=== PATIENT | male | born 1990 | race American Indian/Alaskan Native ===

== ENCOUNTER 2017-09-16 15:59 | Emergency (ER) | payer MEDICARE, MEDICAID ==
[2017-09-16 16:06] VITALS: BP 122/84; PULSE 79; RESP 20; TEMP 98.2; O2SAT 99
--- NOTE | 2017-09-16 16:32 | C.PDOC ---
History Of Present Illness 27 year old male with no significant PMHx presents to the ED with complaints of right ear ache for 1 week. Patient denies fever, chills, throat pain, headache, or other complaints at this time. Time Seen by Provider: 09/16/17 16:20 Chief Complaint (Nursing): ENT Problem History Per: Patient History/Exam Limitations: None Onset/Duration Of Symptoms: Days (1 week ) Current Symptoms Are (Timing): Still Present Symptoms Have Been: Continuous Anticoagulant/Antiplatlet Use?: No Recent Aspirin Use: No Past Medical History Reviewed: Historical Data, Nursing Documentation, Vital Signs Vital Signs: Last Vital Signs Temp 98.2 F 09/16/17 16:03 Pulse 79 09/16/17 16:03 Resp 20 09/16/17 16:03 BP 122/84 09/16/17 16:03 Pulse Ox 99 09/16/17 17:06 Family History: States: Unknown Family Hx - Social History Hx Tobacco Use: No Hx Alcohol Use: No Hx Substance Use: No - Immunization History Hx Tetanus Toxoid Vaccination: No Hx Influenza Vaccination: No Hx Pneumococcal Vaccination: No Review Of Systems Constitutional: Negative for: Fever, Chills ENT: Positive for: Ear Pain. Negative for: Nose Discharge, Throat Pain Respiratory: Negative for: Cough, Shortness of Breath Physical Exam - Physical Exam Appears: Non-toxic, No Acute Distress Skin: Warm, Dry Head: Atraumatic, Normacephalic, No Tenderness Eye(s): bilateral: Normal Inspection, PERRL, EOMI Ear(s): Right: Other (after irrigation right TM appears opaque at 3 o'clock position), Bilateral: TM Obscured By Wax Nose: Normal, No Discharge Oral Mucosa: Moist Throat: Normal, No Erythema, No Exudate Cardiovascular: Rhythm Regular, No Murmur Respiratory: No Rales, No Rhonchi, No Wheezing, Other (clear to auscultation bilaterally ) Neurological/Psych: Oriented x3 ED Course And Treatment O2 Sat by Pulse Oximetry: 99 (RA) Pulse Ox Interpretation: Normal Progress Note: Patient was given Amoxicillin. Medical Decision Making Medical Decision Making: Due to mild cerumen impaction bilaterally, ears were irrigated with saline. Disposition - Disposition Referrals: [facility] [Outside] [facility] [Outside] Gerson Rodriguez MD [Staff Provider] - Disposition: HOME/ ROUTINE Disposition Time: 17:07 Condition: STABLE Additional Instructions: follow up with your doctor. return to er with worsening symptoms or concerns. Prescriptions: Amoxicillin [Amoxil 500 mg Cap] 500 mg PO TID #21 cap Instructions: Otitis Media (ED), Cerumen Impaction (ED) Forms: [employer] (Tajik) - Clinical Impression Clinical Impression: Otitis media, Cerumen impaction - Scribe Statement The provider has reviewed the documentation as recorded by the Scribsalvatore Ortez All medical record entries made by the Horacioibsalvatore were at my direction and personally dictated by me. I have reviewed the chart and agree that the record accurately reflects my personal performance of the history, physical exam, medical decision making, and the department course for this patient. I have also personally directed, reviewed, and agree with the discharge instructions and disposition.
== END 2017-09-16 17:22 | disposition home or self-care (01) ==
LOC: C.ER 15:59
DX: H66.91 Otitis media, unspecified, right ear (principal); H61.23 Impacted cerumen, bilateral

== ENCOUNTER 2018-01-28 12:10 | Emergency (ER) | payer MEDICARE, MEDICAID ==
[2018-01-28 12:15] VITALS: BP 137/81; PULSE 93; RESP 18; TEMP 98.7; O2SAT 99
--- NOTE | 2018-01-28 12:58 | C.PDOC ---
History Of Present Illness Patient reports feeling subjective fever and headache since yesterday. The patient also reports soreness in the throat. denies travel, numbness, weakness, rash, chest pain, SOB, abdominal pain. Time Seen by Provider: 01/28/18 12:26 Chief Complaint (Nursing): Headache History Per: Patient History/Exam Limitations: no limitations Onset/Duration Of Symptoms: Days Current Symptoms Are (Timing): Still Present Recent travel outside of the [place]: No Past Medical History Reviewed: Historical Data, Nursing Documentation, Vital Signs Vital Signs: Last Vital Signs Temp 98.7 F 01/28/18 12:13 Pulse 93 H 01/28/18 12:13 Resp 18 01/28/18 12:13 BP 137/81 01/28/18 12:13 Pulse Ox 99 01/28/18 17:46 Family History: States: Unknown Family Hx - Social History Hx Tobacco Use: No Hx Alcohol Use: No Hx Substance Use: No - Immunization History Hx Tetanus Toxoid Vaccination: Yes Hx Influenza Vaccination: No Hx Pneumococcal Vaccination: No Review Of Systems Constitutional: Positive for: Fever (Subjective) Cardiovascular: Negative for: Chest Pain Respiratory: Negative for: Shortness of Breath Gastrointestinal: Negative for: Abdominal Pain Skin: Negative for: Rash Neurological: Positive for: Headache. Negative for: Weakness, Numbness Physical Exam - Physical Exam Appears: Non-toxic Skin: Normal Color, Warm, Dry, No Rash Head: Atraumatic, Normacephalic Eye(s): bilateral: Normal Inspection, PERRL, EOMI Ear(s): Left: Normal, Right: Other (Bulging and erythematous, TM intact) Nose: Normal Oral Mucosa: Moist Throat: Normal, No Erythema, No Exudate Neck: Normal ROM, Supple Chest: Symmetrical, No Tenderness Cardiovascular: Rhythm Regular Respiratory: Normal Breath Sounds, No Rales, No Rhonchi, No Wheezing Gastrointestinal/Abdominal: Soft, No Tenderness, No Guarding, No Rebound Back: Normal Inspection, No CVA Tenderness Extremity: Normal ROM, No Swelling Neurological/Psych: Oriented x3, Normal Speech Gait: Steady ED Course And Treatment O2 Sat by Pulse Oximetry: 99 (Room air) Pulse Ox Interpretation: Normal Medical Decision Making Medical Decision Making: Augmentin and motrin administered. Patient reports improvement of pain, he is resting comfortably in the ER in no acute distress, vitals are stable; will discharge home with Rx and instructions to follow up with PMD or return if symptoms worsen. Disposition - Disposition Referrals: [facility] [Outside] Disposition: HOME/ ROUTINE Disposition Time: 13:30 Condition: GOOD Additional Instructions: Follow up with the medical doctor within 1-2 days. Return if worsened Prescriptions: Amoxicillin/Clavulanate [Augmentin 875 MG-125 MG] 1 tab PO BID #14 tab Ibuprofen [Motrin] 1 tab PO TID PRN #30 tab PRN Reason: Pain Instructions: Ear Infections (Otitis Media) (DC) Forms: Work Excuse - Clinical Impression Clinical Impression: Otitis media, Headache - PA / MANAGER NURSING / Resident Statement MD/DO has reviewed & agrees with the documentation as recorded. - Scribe Statement The provider has reviewed the documentation as recorded by the Scribsalvatore Eldridge All medical record entries made by the Horacioibsalvatore were at my direction and personally dictated by me. I have reviewed the chart and agree that the record accurately reflects my personal performance of the history, physical exam, medical decision making, and the department course for this patient. I have also personally directed, reviewed, and agree with the discharge instructions and disposition.
[2018-01-28] MEDS ORDERED: Amoxicillin-Clav 875-125 mg Tab PO STA (13:00)
[2018-01-28] MEDS ORDERED: Amoxicillin-Clav 875-125 mg Tab PO ONE (13:12)
== END 2018-01-28 13:43 | disposition home or self-care (01) ==
LOC: C.ER 12:10
DX: H66.91 Otitis media, unspecified, right ear (principal)